=== PATIENT | female | born 1990 | race Two or more races ===

== ENCOUNTER → 2024-01-29 | Outpatient (CLI) | payer MEDICAID, SELFPAY ==
--- NOTE | 2024-01-29 11:15 | XR_ITS ---
Examination: Diagnostic digital mammography, unilateral, right Computer aided detection 3-D breast Tomosynthesis, unilateral Date and time of exam: January 29, 2024 1121 hours INDICATIONS: Patient states right breast lump 2 months Technique: Nonmagnified MLO, CC views of the right breast have been obtained, reconstructed from 3-D Tomosynthesis images. R2 computer aided detection program utilized for evaluation of suspicious masses and/or abnormal calcifications. 3-D Tomosynthesis images obtained. Findings: The breast is heterogeneously dense, which may obscure small masses Suspicious for early architectural distortion inner right breast anterior depth, at the palpable marker site Please see the right breast sonogram December 09, 2023 indicating 11 mm retroareolar oval mass, not clearly visualized on the current mammogram Impression: BI-RADS category 0: Incomplete: Need additional imaging evaluation This patient should return for dedicated right breast sonography with the radiologist in attendance 6 month right mammogram follow-up is also needed to document stability of the small focus of possible architectural distortion in the inner right breast CC view
== END | disposition home or self-care (01) ==
LOC: CDIM 11:02
PROVIDERS: PCP Physician Assistant; Referring Provider Physician Assistant; Visit Provider Physician Assistant
DX: R92.8 Other abnormal and inconclusive findings on diagnostic imaging of breast (principal)
CPT/HCPCS: 77061; 77065; G0279